=== PATIENT | male | born 1970 | race Caucasian/White ===

== ENCOUNTER 2017-03-23 22:48 | Emergency (ER) | payer OTHER ==
[~2017-03-23 22:48] MED LIST: CIPR-255 PO; CYCL1CAP10 PO; ERGO1CAP35 PO; FENO134C2 PO; INSDGI SC; INSUINJ14 SC; METO50TA7 PO; POTTAB2 PO; PRED-301 PO; PRLSR20 PO; ROSU20TA PO; SLWMEC PO
[2017-03-23 22:54] VITALS: TEMP 36.9
[2017-03-23] MEDS ORDERED: SODIUM CHLORIDE 0.9% 1000ML 1,000 ML IV STA (23:16)
[2017-03-23] MEDS ORDERED: OXYCODONE HCL IR 5 MG TAB (IMMEDIATE RELEASE) PO STA (23:19)
--- NOTE | 2017-03-23 23:24 | EMERGENCY ROOM VISIT NOTE ---
History Report prepared by Carlaibe: Tosha Diop Under the Supervision of: Dr. Star Bassett D.O. First contact with patient: 23:07 Chief Complaint: UNABLE TO VOID Stated Complaint: BLADDER PAIN,NOT PEEING,HAS KIDNEY TRANSPLANT Nursing Triage Summary: states having troulble voiding only " pees a little bit and it brown." History of Present Illness The patient is a 46 year old male who presents to the Emergency Room with complaints of difficulty urinating since 1930 this evening. He reports he has been "only peeing a little bit" and states "it brown" when he pees. He rates his pain as a 10/10 and notes he has a history of a kidney transplant due to polycystic kidney disease. He states the transplant area feels "soft and tender ", but reports it is "always tender". He denies any recent fevers or pain or swelling in his legs. He denies any abdominal pain or abdominal distension. Source of History: patient Onset: 1929 this evening Position: pelvis (urinary system) Symptom Intensity: 10/10 Quality: burning ("brown") Timing: other (persistent) Associated Symptoms: No fevers, No abdominal pain Review of Systems See HPI for pertinent positives & negatives. A total of 10 systems reviewed and were otherwise negative. 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 (3) Chronic anemia (4) Diabetes mellitus type II, controlled (5) Dyslipidemia (6) Epilepsy (7) Foot drop, bilateral (8) Generalized anxiety disorder (9) GERD (gastroesophageal reflux disease) (10) HTN (hypertension) (11) Osteoporosis (12) Vitamin D deficiency Surgical Problems: (1) History of cholecystectomy (2) S/p cadaver renal transplant Social History Smoking Status: Never Smoker Alcohol Use: none Drug Use: none Marital Status: Housing Status: lives with family Occupation Status: employed Current/Historical Medications Scheduled Ciprofloxacin Hcl (Cipro), 500 MG PO BID Cyclosporine (Neoral), 100 MG PO BID Fenofibrate (Tricor ), 134 MG PO DAILY Insulin Aspart (Novolog Penfill), UNITS SQ AC Insulin Glargine (Lantus Solostar), 18 UNITS SC AMPM Metoprolol Succ (Toprol Xl) (Toprol-Xl), 50 MG PO DAILY Omeprazole (Prilosec), 40 MG PO DAILY Prednisone (Prednisone), 5 MG PO DAILY Rosuvastatin Calcium (Crestor), 20 MG PO DAILY Allergies Coded Allergies: Lorazepam (Verified Allergy, Mild, FLOATERS IN EYES, 03/23/17) Physical Exam Vital Signs Date Time Temp Pulse Resp B/P (MAP) Pulse Ox O2 Delivery O2 Flow Rate FiO2 03/24/17 01:13 84 18 134/90 95 03/24/17 00:36 81 20 154/95 94 Room Air 03/23/17 23:48 85 20 138/85 97 Room Air 03/23/17 23:47 87 03/23/17 22:54 36.9 93 18 157/83 99 Room Air Physical Exam GENERAL: Patient is awake, alert, non-anxious appearing and comfortable. EYES: Post surgical changes noted, no discharge or jaundice appreciated. The conjunctivae are clear. The pupils are round and reactive. EARS, NOSE, MOUTH AND THROAT: The nose is without any evidence of any deformity. Mucous membranes are moist tongue is midline NECK: The neck is nontender and supple. RESPIRATORY: Normal respiratory effort is noted there is no evidence of wheezing rhonchi or rales CARDIOVASCULAR: Regular rate and rhythm noted there no murmurs rubs or gallops normal S1 normal S2 GASTROINTESTINAL: The abdomen is mildly distended but soft, no tenderness, guarding or rigidity noted, transplanted kidney noted in the LLQ, no tenderness or rigidity. MUSCULOSKELETAL/EXTREMITIES: There is no evidence of gross deformity full range of motion is noted in the hips and shoulders SKIN: There is no obvious evidence of any rash. There are no petechiae, pallor or cyanosis noted. NEUROLOGIC: Patient is awake alert and oriented x3 Medical Decision & Procedures Laboratory Results 03/23/17 23:40 Red Blood Count 4.24, Mean Corpuscular Volume 88.0, Mean Corpuscular Hemoglobin 30.0, Mean Corpuscular Hemoglobin Concent 34.0, Mean Platelet Volume 9.2, Neutrophils (%) (Auto) 72.0, Lymphocytes (%) (Auto) 15.5, Monocytes (%) (Auto) 10.7, Eosinophils (%) (Auto) 1.0, Basophils (%) (Auto) 0.3, Neutrophils # (Auto ) 8.97, Lymphocytes # (Auto) 1.94, Monocytes # (Auto) 1.34, Eosinophils # (Auto ) 0.13, Basophils # (Auto) 0.04 03/23/17 23:40 Test 03/23/17 23:40 03/23/17 23:50 White Blood Count 12.48 K/uL (4.8-10.8) Red Blood Count 4.24 M/uL (4.7-6.1) Hemoglobin 12.7 g/dL (14.0-18.0) Hematocrit 37.3 % (42-52) Mean Corpuscular Volume 88.0 fL (80-100) Mean Corpuscular Hemoglobin 30.0 pg (25-34) Mean Corpuscular Hemoglobin Concent 34.0 g/dl (32-36) Platelet Count 288 K/uL (130-400) Mean Platelet Volume 9.2 fL (7.4-10.4) Neutrophils (%) (Auto) 72.0 % Lymphocytes (%) (Auto) 15.5 % Monocytes (%) (Auto) 10.7 % Eosinophils (%) (Auto) 1.0 % Basophils (%) (Auto) 0.3 % Neutrophils # (Auto) 8.97 K/uL (1.4-6.5) Lymphocytes # (Auto) 1.94 K/uL (1.2-3.4) Monocytes # (Auto) 1.34 K/uL (0.11-0.59) Eosinophils # (Auto) 0.13 K/uL (0-0.5) Basophils # (Auto) 0.04 K/uL (0-0.2) RDW Standard Deviation 42.0 fL (36.4-46.3) RDW Coefficient of Variation 13.0 % (11.5-14.5) Immature Granulocyte % (Auto) 0.5 % Immature Granulocyte # (Auto) 0.06 K/uL (0.00-0.02) Anion Gap 8.0 mmol/L (3-11) Estimated GFR () 58.6 Estimated GFR (Non- 50.6 BUN/Creatinine Ratio 19.8 (10-20) Calcium Level 9.5 mg/dl (8.5-10.1) Total Bilirubin 0.4 mg/dl (0.2-1) Direct Bilirubin 0.1 mg/dl (0-0.2) Aspartate Amino Transf (AST/SGOT) 32 U/L (15-37) Alanine Aminotransferase (ALT/SGPT) 43 U/L (12-78) Alkaline Phosphatase 75 U/L (45-117) Total Protein 7.1 gm/dl (6.4-8.2) Albumin 3.5 gm/dl (3.4-5.0) Lipase 185 U/L (73-393) Urine Color YELLOW Urine Appearance CLOUDY (CLEAR) Urine pH 6.0 (4.5-7.5) Urine Specific [place] 1.013 (1.000-1.030) Urine Protein 1+ (NEG) Urine Glucose (UA) 2+ (NEG) Urine Ketones NEG (NEG) Urine Occult Blood 3+ (NEG) Urine Nitrite NEG (NEG) Urine Bilirubin NEG (NEG) Urine Urobilinogen NEG (NEG) Urine Leukocyte Esterase LARGE (NEG) Urine WBC (Auto) >30 /hpf (0-5) Urine RBC (Auto) >30 /hpf (0-4) Urine Hyaline Casts (Auto) 1-5 /lpf (0-5) Urine Epithelial Cells (Auto) 5-10 /lpf (0-5) Urine Bacteria (Auto) NEG (NEG) Laboratory results per my review. Medications Administered Medications (Trade) Dose Ordered Sig/Sameer Route Start Time Stop Time Status Last Admin Dose Admin Sodium Chloride 1,000 ml @ 999 mls/hr Q1H1M STAT IV 03/23/17 23:16 03/24/17 00:16 DC 03/23/17 23:40 999 MLS/HR Oxycodone HCl (Roxicodone Immediate Rel Tab) 5 mg NOW STAT PO 03/23/17 23:19 03/23/17 23:20 DC 03/23/17 23:25 5 MG Ciprofloxacin (Cipro 500MG Home Pack) 1 homepack UD ONCE PO 03/24/17 00:45 03/24/17 00:47 DC 03/24/17 01:03 1 HOMEPACK Ciprofloxacin (Cipro Tab) 500 mg NOW STAT PO 03/24/17 00:45 03/24/17 00:47 DC 03/24/17 01:04 500 MG Oxycodone HCl (Roxicodone Immediate Rel 5MG Home Pack) 1 homepack UD ONCE PO 03/24/17 00:45 03/24/17 00:47 DC 03/24/17 01:03 1 HOMEPACK Ondansetron HCl (ZOFRAN ODT 4MG Home Pack) 1 homepack UD ONCE PO 03/24/17 00:45 03/24/17 00:47 DC 03/24/17 01:03 1 HOMEPACK ED Course 2315: The patient was evaluated in room A3. A complete history and physical examination were performed. 2316: NSS 1000 ml @ 999 mls/hr IV. 2319: Oxycodone HCl 5 mg PO. 0044: I discussed the patients case with Lorena, the head start coordinator at [facility]. She recommends the patient be started in Cipro. 0045: Zofran 4 mg 1 homepack PO, Oxycodone HCl 5 mg 1 homepack PO, Cipro Tab 500 mg PO, Cipro Tab 500 mg 1 homepack PO. 0110: I reevaluated the patient. He is feeling well. I discussed his results and discharge instructions and he verbalized complete understanding and agreement. Medical Decision Prior records/ancillary studies reviewed. Triage Nursing notes reviewed. Differential diagnosis: Etiologies such as appendicitis, diverticulitis, PUD, biliary pathology, UTI, pancreatitis, obstruction, mesenteric ischemia, aortic pathology, infections, inflammatory bowel disease, renal colic, as well as others were entertained. The patient is a 46-year-old male who presented to the emergency department for an evaluation of dysuria and frequency. The patient is a history of a kidney transplant in the past. He does not appear to have severe abdominal discomfort and does not have a physical exam consistent with an acute surgical abdomen. I discussed the patient's laboratory and radiographic studies with him. The patient was treated with IV fluids as well as oral antibiotics in the emergency department. I discussed his case with the head start coordinator at [facility]. The patient was started on antibiotic. He was encouraged to drink plenty clear liquids and follow-up with his primary care physician. He was also encouraged to return to the emergency apartment immediately if symptoms change worsen or the need arises. Consults Time Called: 39 Consulting Physician: Lorena Flight Operations Inspector at [facility] Returned Call: 43 I discussed the patients case with Lorena, the head start coordinator at [facility]. She recommends the patient be started in Cipro. Impression Primary Impression: UTI (urinary tract infection) Additional Impression: Hematuria Scribe Attestation The scribe's documentation has been prepared under my direction and personally reviewed by me in its entirety. I confirm that the note above accurately reflects all work, treatment, procedures, and medical decision making performed by me. Departure Information Dispostion Home / Self-Care Prescriptions Ciprofloxacin Hcl (CIPRO) 500 Mg Tab 500 MG PO BID, #20 TAB Prov: Star Bassett, DO 03/24/17 Referrals Cachorro Lazcano M.D. (PCP) Patient Instructions My [facility], Urinary Tract Infecs Men Additional Instructions Continue all medications as prescribed. Drink plenty of clear liquids. Return the emergency Department immediately if symptoms change worsen or the need arises. Problem Qualifiers
[2017-03-23] MEDS ORDERED: INSDGIPEN SC (23:27)
[2017-03-23] MEDS ORDERED: INSU1INJ2 SQ (23:29)
[2017-03-23 23:58] LABS: BASO % 0.3 %; BASO ABS # 0.04 K/uL (0-0.2); COMPLETE YES; HEMATOCRIT 37.3 % (42-52); IG% 0.5 %; LYMPH % 15.5 %; LYMPH ABS # 1.94 K/uL (1.2-3.4); MEAN PLATELET VOLUME 9.2 fL (7.4-10.4); MONO % 10.7 %; PLATELET COUNT 288 K/uL (130-400); RED BLOOD COUNT 4.24 M/uL (4.7-6.1); WHITE BLOOD COUNT 12.48 K/uL (4.8-10.8)
[2017-03-24 00:18] LABS: ALT/SGPT 43 U/L (12-78); AST/SGOT 32 U/L (15-37); BLOOD UREA NITROGEN 32 mg/dl (7-18); BUN/CREATININE RATIO 19.8 (10-20); CALCIUM 9.5 mg/dl (8.5-10.1); CARBON DIOXIDE 24 mmol/L (21-32); CHLORIDE 107 mmol/L (98-107); GLUCOSE 206 mg/dl (70-99); POTASSIUM 4.1 mmol/L (3.5-5.1); SODIUM 139 mmol/L (136-145)
[2017-03-24 00:20] LABS: ALKALINE PHOSPHATASE 75 U/L (45-117)
[2017-03-24 00:21] LABS: MANUAL MICROSCOPIC REQUIRED? NO; REVIEW REQ? NO; URINE APPEARANCE CLOUDY (CLEAR); URINE BILIRUBIN NEG (NEG); URINE COLOR YELLOW; URINE NITRITE NEG (NEG); URINE SPECIFIC GRAVITY 1.013 (1.000-1.030); UROBILINOGEN NEG (NEG)
[2017-03-24] MEDS ORDERED: CIPROFLOXACIN 500 MG TAB PO STA (00:45)
[2017-03-24] MEDS ORDERED: ONDANSETRON HOME PACK 4MG OD TAB PO ONE (00:45)
[2017-03-24] MEDS ORDERED: CIPROFLOXACIN 500MG HOME PACK PO ONE (00:45)
[2017-03-24] MEDS ORDERED: OXYCODONE IR HOME PACK PO ONE (00:45)
[2017-03-24] MEDS ORDERED: CIPR-255 PO (00:49)
[2017-03-24 01:13] VITALS: BP 134/90; PULSE 84; O2SAT 95
== END 2017-03-24 01:14 | disposition home or self-care (01) ==
LOC: C.EDB 22:48 → C.EDA 03-24 01:14
DX: N39.0 Urinary tract infection, site not specified (principal); R31.9 Hematuria, unspecified; Z94.0 Kidney transplant status; E11.9 Type 2 diabetes mellitus without complications; D64.9 Anemia, unspecified; H54.0 Blindness, both eyes; E78.5 Hyperlipidemia, unspecified; G40.909 Epilepsy, unspecified, not intractable, without status epilepticus; F41.9 Anxiety disorder, unspecified; K21.9 Gastro-esophageal reflux disease without esophagitis; I10 Essential (primary) hypertension; M81.0 Age-related osteoporosis without current pathological fracture; E55.9 Vitamin D deficiency, unspecified; Z79.4 Long term (current) use of insulin; Z79.52 Long term (current) use of systemic steroids; Z79.899 Other long term (current) drug therapy